=== PATIENT | female | born 1945 | race Caucasian/White ===

== ENCOUNTER 2017-03-14 19:55 | Emergency (ER) | payer OTHER ==
[~2017-03-14] VITALS: Ht 152.4 cm; Wt 112.7 kg
[~2017-03-14 19:55] MED LIST: ALLO100T PO; FISH1000 PO; LEVA500T33 PO; LEVO100T4 PO; LISI-366 PO; MEVA40TA6 PO; PROT40TA PO; SERT-132 PO; SYMB160A INH; TRAZ50TA4 PO; VITA-13 PO; VITA10002 PO; Z.0.OXYGENDME NC
[2017-03-14 20:02] VITALS: BP 156/92; PULSE 83; RESP 22; TEMP 98.2; O2SAT 95
[2017-03-14] MEDS ORDERED: SODIUM CHLORIDE 0.9% FLUSH 10 ML FLUSH IVF PRN (20:15)
--- NOTE | 2017-03-14 20:20 | PD ---
HPI Chief Complaint: Bleeding Time Seen by Provider: 20:02 Travel History International Travel<30 days: No Contact w/Intl Traveler<30days: No Traveled to known affect area: No History of Present Illness HPI 72-year-old female arrives today to bleeding for 1 day. She noticed blood, either genitourinary or GI in source, while showering. She applied a pad and has since then had persistent bleeding predominantly on one side, unknown to the patient or daughter. Each episode urination leads to bleeding. The daughter observed clots of blood at various times today. The patient takes Eloquis for arrhythmia and evidently a chest aneurysm as well. Patient's had no chest pain or palpitation near syncope dizziness headache or other symptoms consistent with acute anemia however she is fairly dyspneic here. The patient states it's worse than normal for her. The daughter states is about baseline. The patient reports having been treated for COPD throughout course of her life with numerous smokers at home however she never smoked. Evidently Dr. guzman of pulmonology told the patient she does not have COPD. She is on oxygen 24/04. She denies the use of diuretics or a history of CHF. She has never undergone hysterectomy. She does not recall having undergone a colonoscopy. PFSH Past Medical History Hx Anticoagulant Therapy: Yes (ELIQUIS) Arthritis: Yes Asthma: No Blood Disorders: No Anxiety: No Depression: No Heart Rhythm Problems: No Cancer: No High Cholesterol: Yes Chemotherapy: No Chest Pain: No Congestive Heart Failure: Yes COPD: Yes Diabetes: No Diminished Hearing: No Endocrine: Yes Gastrointestinal Disorders: No Glaucoma: No Gout: Yes Genitourinary: Yes (Hx of kidney stones ) Hepatitis: No Hiatal Hernia: No Hypertension: Yes Immune Disorder: No Implanted Vascular Access Dvce: Yes Musculoskeletal: No Neurologic: No Psychiatric: No Reproductive: No Respiratory: Yes (COPD) Myocardial Infarction: No Radiation Therapy: No Sickle Cell Disease: No Sleep Apnea: Yes Thyroid Disease: Yes (HYpothyroidism, on Synthroid QD) PNEUMOCCOCAL Vaccine (Year): 2 ?: Not Menopausal: Yes Past Surgical History Abdominal Surgery: Yes (UMBILICAL HERNIA REP.) AICD: No Arteriovenous Shunt: No Body Medical Devices: R shoulder titanium rods/joint Cardiac Surgery: No Cholecystectomy: Yes Ear Surgery: No Endocrine Surgery: Yes (THYMECTOMY) Eye Surgery: No Genitourinary Surgery: No Gynecologic Surgery: No Insulin Pump: No Joint Replacement: No Oral Surgery: No Pacemaker: No Thoracic Surgery: No Other Surgery: Yes Social History Alcohol Use: No Tobacco Use: No Substance Use: No Allergies-Medications (Allergen,Severity, Reaction): Coded Allergies: Sulfa (Verified Allergy, Severe, 03/14/17) Minocycline (Verified Allergy, Unknown, 03/14/17) Pravastatin (Verified Allergy, Unknown, 03/14/17) UNKNOWN REACTION - PER PT Reported Meds & Prescriptions Reported Meds & Active Scripts Active Reported Eliquis (Apixaban) 5 Mg Tab 5 Mg PO BID Fish Oil ([place]-3 Fatty Acids) 1,000 Mg Cap Trazodone (Trazodone HCl) 50 Mg Tab 50 Mg PO HS Sertraline (Sertraline HCl) 50 Mg Tab 50 Mg PO DAILY Pantoprazole (Pantoprazole Sodium) 40 Mg Tab 40 Mg PO DAILY Allopurinol 100 Mg Tab 100 Mg PO DAILY Lisinopril 40 Mg Tab 40 Mg PO DAILY Levothyroxine (Levothyroxine Sodium) 100 Mcg Tab 100 Mcg PO DAILY Lovastatin 40 Mg Tab 80 Mg PO DAILY Review of Systems Except as stated in HPI: all other systems reviewed are Neg General / Constitutional: No: Fever Physical Exam Narrative GENERAL: 72 F, BMI 48.5, conversational dyspnea, nasal cannula oxygen therapy at 2-3 L SKIN: Warm and dry. HEAD: Atraumatic. Normocephalic. EYES: Pupils equal and round. No scleral icterus. No injection or drainage. ENT: No nasal bleeding or discharge. Mucous membranes pink and moist. NECK: Trachea midline. No JVD. CARDIOVASCULAR: Regular rate and rhythm. RESPIRATORY: Lungs are clear. Tachypnea. GASTROINTESTINAL: Abdomen soft, non-tender, nondistended. Hepatic and splenic margins not palpable. MUSCULOSKELETAL: Extremities without clubbing, cyanosis, or edema. No obvious deformities. NEUROLOGICAL: Awake and alert. No obvious cranial nerve deficits. Motor grossly within normal limits. Five out of 5 muscle strength in the arms and legs. Normal speech. PSYCHIATRIC: Appropriate mood and affect; insight and judgment normal. Data Data Last Documented VS Vital Signs Date Time Temp Pulse Resp B/P Pulse Ox O2 Delivery O2 Flow Rate FiO2 03/14/17 20:36 96 Nasal Cannula 2 03/14/17 20:02 98.2 83 22 156/92 Vital signs reviewed Orders Basic Metabolic Panel (Bmp) (03/14/17 20:15) Complete Blood Count With Diff (03/14/17 20:15) Prothrombin Time / Inr (Pt) (03/14/17 20:15) Act Partial Throm Time (Ptt) (03/14/17 20:15) Urinalysis - C+S If Indicated (03/14/17 20:15) Type And Screen (03/14/17 20:15) Ecg Monitoring (03/14/17 20:15) Iv Access Insert/Monitor (03/14/17 20:15) Oximetry (03/14/17 20:15) Oxygen Administration (03/14/17 20:15) Sodium Chloride 0.9% Flush (Ns Flush) (03/14/17 20:15) Labs Laboratory Tests Test 03/14/17 20:30 White Blood Count 7.7 TH/MM3 Red Blood Count 3.94 MIL/MM3 Hemoglobin 11.2 GM/DL Hematocrit 34.7 % Mean Corpuscular Volume 88.0 FL Mean Corpuscular Hemoglobin 28.4 PG Mean Corpuscular Hemoglobin 32.3 % Concent Red Cell Distribution Width 14.9 % Platelet Count 178 TH/MM3 Mean Platelet Volume 8.5 FL Neutrophils (%) (Auto) 75.2 % Lymphocytes (%) (Auto) 17.8 % Monocytes (%) (Auto) 5.8 % Eosinophils (%) (Auto) 1.0 % Basophils (%) (Auto) 0.2 % Neutrophils # (Auto) 5.8 TH/MM3 Lymphocytes # (Auto) 1.4 TH/MM3 Monocytes # (Auto) 0.4 TH/MM3 Eosinophils # (Auto) 0.1 TH/MM3 Basophils # (Auto) 0.0 TH/MM3 CBC Comment DIFF FINAL Differential Comment Prothrombin Time 10.6 SEC Prothromb Time International 1.0 RATIO Ratio Activated Partial 27.3 SEC Thromboplast Time Sodium Level 141 MEQ/L Potassium Level 4.0 MEQ/L Chloride Level 101 MEQ/L Carbon Dioxide Level 33.0 MEQ/L Anion Gap 7 MEQ/L Blood Urea Nitrogen 15 MG/DL Creatinine 0.68 MG/DL Estimat Glomerular Filtration 85 ML/MIN Rate Random Glucose 118 MG/DL Calcium Level 9.5 MG/DL MDM Medical Decision Making Medical Screen Exam Complete: Yes Emergency Medical Condition: Yes Medical Record Reviewed: Yes Differential Diagnosis GI bleed, bleed, COPD, anemia Narrative Course A pelvic exam was started and the pt was found to have an approximate 2cm very thin (<1mm wide) and shallow right groin laceration/abrasion overlying a vascular bundle with active oozing located at about the superior and lateral most margins of the of the labia major such that actual involvement of the labial tissue was undetermined at the time of evaluation and treatment with consideration given to age and habitus. Pressure was applied for about 5 minutes and Dermabond was applied with good bleed control. Blood work is normal for patient. She will continue Eliquis however will follow-up with Dr. Ryan to discuss it. CBC & BMP Diagram 03/14/17 20:30 Procedures Procedure Narrative LACERATION LOCATION: R groin LENGTH: 2 cm NUMBER OF STITCHES/MIKHAIL: Dermabond REPAIR: The wound was closed using Dermabond. This was a single layer repair. advised to keep the dressing clean and dry. Patient tolerated the procedure well. Diagnosis Primary Impression: Bleeding Additional Impression: Laceration of groin with complication Qualified Code: S31.119A - Laceration of groin with complication, initial encounter Referrals: Lionel Ryan MD call for appointment Additional Instructions: You have a choice when it comes to health care, and we are glad that you chose [email or web address]. Hopefully, we have met your expectations on today's visit. You are welcome to return to [email or web address] at any time, as we are committed to meeting the health care needs of our community. Med/Other Pt SpecificInfo: No Change to Meds Disposition: 01 DISCHARGE HOME Condition: Dangelo Law MD Mar 14, 2017 20:20
[2017-03-14] MEDS ORDERED: FISH1000 (20:23)
[2017-03-14] MEDS ORDERED: TRAZ50TA12 PO (20:23)
[2017-03-14] MEDS ORDERED: LOVA40TA PO (20:23)
[2017-03-14] MEDS ORDERED: SERT-132 PO (20:23)
[2017-03-14] MEDS ORDERED: APIX5TAB PO (20:23)
[2017-03-14] MEDS ORDERED: LISI40TA PO (20:23)
[2017-03-14] MEDS ORDERED: ALLO100T PO (20:23)
[2017-03-14] MEDS ORDERED: PANT40TA3 PO (20:23)
[2017-03-14] MEDS ORDERED: LEVO100T5 PO (20:23)
[2017-03-14 20:44] LABS: AUTOMATED NEUTROPHIL # 5.8 TH/MM3 (1.8-7.7); BASOPHIL % 0.2 % (0.0-2.0); EOSINOPHIL # 0.1 TH/MM3 (0-0.4); HEMATOCRIT 34.7 % (35.0-46.0); HEMO FLAGS DIFF FINAL; LYMPH % 17.8 % (9.0-44.0); LYMPHOCYTE # 1.4 TH/MM3 (1.0-4.8); MEAN CORPUSCULAR HEMOGLOBIN 28.4 PG (27.0-34.0); MEAN CORPUSCULAR HGB CONC 32.3 % (32.0-36.0); MONO % 5.8 % (0.0-8.0); NEUT % 75.2 % (16.0-70.0); PLATELET COUNT 178 TH/MM3 (150-450); RED BLOOD COUNT 3.94 MIL/MM3 (4.00-5.30); RED CELL DISTRIBUTION WIDTH 14.9 % (11.6-17.2); WHITE BLOOD COUNT 7.7 TH/MM3 (4.0-11.0)
[2017-03-14 21:15] LABS: APTT (PATIENT) 27.3 SEC (24.3-30.1); PROTHROMBIN TIME - PATIENT 10.6 SEC (9.8-11.6)
[2017-03-14 21:58] VITALS: BP 167/88
== END 2017-03-14 22:00 | disposition home or self-care (01) ==
LOC: PHED 19:55
DX: S31.113A Laceration without foreign body of abdominal wall, right lower quadrant without penetration into peritoneal cavity, initial encounter (principal); X58.XXXA Exposure to other specified factors, initial encounter; Z79.01 Long term (current) use of anticoagulants
CPT/HCPCS: 12001; 80048; 85025; 85610; 85730; 86850; 86900; 86901

== ENCOUNTER 2017-05-24 12:54 | Day surgery (SDC) | payer OTHER ==
[2017-05-24] VITALS (11 sets, daily range): BP systolic 119–162; BP diastolic 66–89; PULSE 76–90; RESP 18–22; TEMP 97.5–98; O2SAT 94–100
[~2017-05-24] VITALS: Ht 152.4 cm; Wt 112.5 kg
[~2017-05-24 12:54] MED LIST changes: +APIX5TAB PO; +FISH1000; -FISH1000 PO; -LEVA500T33 PO; -LEVO100T4 PO; +LEVO100T5 PO; -LISI-366 PO; +LISI40TA PO; +LOVA40TA PO; -MEVA40TA6 PO; +PANT40TA3 PO; -PROT40TA PO; -SYMB160A INH; +TRAZ50TA12 PO; -TRAZ50TA4 PO; -VITA-13 PO; -VITA10002 PO; -Z.0.OXYGENDME NC
[2017-05-24] MEDS ORDERED: MULTTAB67 PO (14:13)
[2017-05-24 14:23] LABS: AUTOMATED NEUTROPHIL # 4.8 TH/MM3 (1.8-7.7); BASOPHIL % 0.4 % (0.0-2.0); EOSINOPHIL # 0.1 TH/MM3 (0-0.4); EOSINOPHIL % 0.8 % (0.0-4.0); HEMATOCRIT 36.4 % (35.0-46.0); HEMO FLAGS DIFF FINAL; LYMPH % 25.6 % (9.0-44.0); LYMPHOCYTE # 1.8 TH/MM3 (1.0-4.8); MEAN CELL VOLUME 88.8 FL (80.0-100.0); MEAN CORPUSCULAR HGB CONC 32.7 % (32.0-36.0); MONO % 6.6 % (0.0-8.0); NEUT % 66.6 % (16.0-70.0); PLATELET COUNT 194 TH/MM3 (150-450); RED CELL DISTRIBUTION WIDTH 15.2 % (11.6-17.2); WHITE BLOOD COUNT 7.2 TH/MM3 (4.0-11.0)
[2017-05-24 14:33] LABS: APTT (PATIENT) 26.6 SEC (24.3-30.1); PROTHROMBIN TIME - PATIENT 10.5 SEC (9.8-11.6)
[2017-05-24 14:44] LABS: BICARBONATE 33.1 MEQ/L (21.0-32.0); POTASSIUM 3.9 MEQ/L (3.5-5.1)
[2017-05-24] MEDS ORDERED: ISOPROTERENOL HCL 1 MG/5 ML AMP ONE ×2 (16:59→17:02)
[2017-05-24] MEDS ORDERED: MIDAZOLAM HCL 2 MG/2 ML VIAL ONE (16:59)
--- NOTE | 2017-05-24 18:25 | CATHPROC ---
Electric Imp HIS Report Study Information Study Number Admission Scheduled Start Study Start [id number] May 24 2017 12:54PM 05/24/2017 May 24 2017 5:09PM [place] [facility] Electrophysiology Study Admit Source Facility Department Other [facility] - Business Office Technician Physician and Clinical Staff Initial Claudia Nguyen Master Police Detective Alessandra Alberto,RT(R) TECH2 Other Anesthesia, LINE CREWMAN Recorder Genia Damico,RN Scrub Cherrie Carroll,CHILDBIRTH AND INFANT CARE TEACHER Procedures Performed Procedure Ablation Procedure Cardioversion Equipment Time Tailer In Description Size Mfg Part Number Used/Scraped [id number] 17:45 [employer] PACK, CCL CUSTOM * Used *[id number] 17:45 [facility] PACER LECHUGA, LIMB * 2530 *[id number] Used [id number] 17:45 [employer] BLANKET,WARM AIR CCL * Used *[id number] 17:45 [employer] CATHETER, JSN, QUAD FR 5 Used *[id number] 17:45 [employer] CATHETER, JSN, QUAD FR 5 Used *[id number] 17:45 [employer] CATHETER, JSN, QUAD FR 5 Used *[id number] 17:45 [employer] CATHETER, JSN, QUAD FR 5 Used *[id number] 17:45 [employer] ELECTRODE KIT, SAUL X SURFACE * [id number] Used [id number] 17:46 [employer] SHEATH, EPS, FR5 FAST CATH FR 5 Used *[id number] 17:46 [employer] SHEATH, EPS, FR5 FAST CATH FR 5 Used *[id number] 17:46 [employer] SHEATH, EPS, FR5 FAST CATH FR 5 Used *[id number] 17:46 [employer] SHEATH, EPS, FR6 FAST CATH FR [id number] 17:46 [employer] SHEATH, EPS, FR8 FAST CATH FR 8 [id number] Used [place] PAD, ELECTROSURGICAL 17:45 * [id number] *[id number] Used SURGICAL GROUNDING (BLUE) Medication Medication Total Dose (Bolus/Oral) Medication Total Dosage/Unit 1% XYLOCAINE 40 mL Medications (Bolus/Oral) Medication Time Given Dosage/Unit Administered By Reason 1% XYLOCAINE 05/24/2017 5:44:09 PM 20 mL Claudia Washington 20 mL 1% XYLOCAINE given in lab by Claudia Washington in Left Groin via Subcutaneous. 1% XYLOCAINE 05/24/2017 5:47:56 PM 20 mL Claudia Washington 20 mL 1% XYLOCAINE given in lab by Claudia Washington in Right Groin via Subcutaneous. Medication (Drip) Medication Time Given Dosage/Unit Concentration/Unit Diluent (ml) Solution ISUPREL 05/24/2017 6:02:50 PM 4 mcg/min 1 mg 250 NaCl .9 4 mcg/min ISUPREL given in lab by Claudia Washington via Peripheral IV. Pump/Drip Flow = 60 ml/hr using Na Cl .9 with a concentration of 1 mg in 250 ml. Initial Case Assessment Cardiovascular HR Rhythm NIBP Chest Pain 78 PACED 162/84 0 Edema Present Skin color Skin None Normal Warm Dry Circulatory - Right Pulses Dorsalis Pedis 1 Scale (0,1,2,3,4,d) Circulatory - Left Pulses Dorsalis Pedis 1 Scale (0,1,2,3,4,d) Neurological State Oriented to time-place- Alert Moves all extremities person Respiration - General Respiration Rate SpO2 (%) O2 (lpm) (B/min) 18 94 2 Chronological Log Time Study Chronological Log 17:00:00 Patient arrived via Bed. 17:00:10 Patient Name, D.O.B, / Armband Verified By R.N. Verbal Stimulation=~VERBAL~ Physical Stimulation=~PHYSICAL~ Airway=~AIRWAY~ Respiration=~RESPIR ATION~ 17:01:00 TOTAL=~TOTAL~. (0=absent, 1=limited, 2=present) 17:12:10 MD paged 17:15:10 MD responded Anesthesia at bedside. Assumes care of patient. (Jamal Trinidad CRNA ) SEE RECORDS FOR ALL MEDS AND TALS DURING 17:21:21 PROCEDURE 17:21:52 Patient has been NPO for More than 6Hrs. 17:21:55 Skin Breakdown- NONE PER PATIENT 17:22:23 Disposable Defibrillator Pads Placed On Patient. 17:22:24 Keila Prominences Protected 17:22:25 IV Warmer Connected To Patient. 17:22:26 A # 20 IV was noted in the Forearm (left). Grade = 0 17:22:47 A # 20 IV was noted in the Hand (right). Grade = 0 17:23:03 History and physical on the chart or being dictated. Assessment: Initial Case, HR=78 BPM, Rhythm=PACED, YJKV=070/84 mmhg, Chest Pain=0, Edema=None, Color=Normal, Skin = Warm, Dry Right Pulses: Noam Ped=1 17:23:04 Left Pulses: Noam Ped=1 Neurological: State=Alert, Ox3, JAY Respiration: Resp=18 B/min, SpO2=94 %, O2=2 lpm 17:24:04 Table restraints applied according to hospital policy 17:24:05 Bilateral groins prepped with 2% chlorhexidine, and with a 3 min. waiting time. 17:25:12 Reference ECG taken Time Out. Correct patient, procedure, procedure equipment, site and side verified with physicia n present. Time 17:40:00 concurred by MD, individual staff and LINE CREWMAN. Time Out #2 - Consents verified, patient in correct position, all results are labled and displa yed, safety precautions 17:40:10 taken, antibiotics administered. Time out concurred by MD, individual staff and LINE CREWMAN in procedu re 17:41:01 Case Start 17:44:09 20 mL 1% XYLOCAINE given in lab by Claudia Washington in Left Groin via Subcutaneous. 17:44:28 Vascular access was obtained in the Fem Vein (left). 17:44:31 Vascular access was obtained in the Fem Vein (left). 17:44:32 Vascular access was obtained in the Fem Vein (left). 17:45:00 A SHEATH, EPS, FR5 FAST CATH FR 5 was advanced into the Fem Vein (left) using the Modified Seldinger technique. 17:45:56 A SHEATH, EPS, FR5 FAST CATH FR 5 was advanced into the Fem Vein (left) using the Modified Seldinger technique. 17:46:50 A SHEATH, EPS, FR5 FAST CATH FR 5 was advanced into the Fem Vein (left) using the Modified Seldinger technique. 17:47:56 20 mL 1% XYLOCAINE given in lab by Claudia Washington in Right Groin via Subcutaneous. 17:48:00 Vascular access was obtained in the Fem Vein (right). 17:48:10 Vascular access was obtained in the Fem Vein (right). 17:49:00 A SHEATH, EPS, FR6 FAST CATH FR 6 was advanced into the Fem Vein (right) using the Modified Seldinger technique. 17:49:55 A SHEATH, EPS, FR8 FAST CATH FR 8 was advanced into the Fem Vein (right) using the Modified Seldinger technique. A CATHETER, JSN, QUAD FR 5 was advanced vis Fem Vein (left) and placed in the CS. Placement was visually 17:50:00 confirmed under fluoroscopy. A CATHETER, JSN, QUAD FR 5 was advanced vis Fem Vein (left) and placed in the HIS. Placement w as visually 17:51:00 confirmed under fluoroscopy. A CATHETER, JSN, QUAD FR 5 was advanced vis Fem Vein (left) and placed in the RVA. Placement w as visually 18:00:10 confirmed under fluoroscopy. A CATHETER, JSN, QUAD FR 5 was advanced vis Fem Vein (left) and placed in the HRA. Placement w as visually 18:01:15 confirmed under fluoroscopy. 18:01:21 EP STUDY IN PROGRESS 4 mcg/min ISUPREL given in lab by Claudia Washington via Peripheral IV. Pump/Drip Flow = 60 ml/hr u sing NaCl .9 with a 18:02:50 concentration of 1 mg in 250 ml. 18:17:14 ECG rhythm of AF noted. Patient cardioverted at 200 joules. Incomplete Success SYNC 18:18:48 ECG rhythm of AF noted. Patient cardioverted at 360 joules. Incomplete Success SYNC 18:19:10 Case End 18:21:26 Ablation procedure performed: AFIB. 18:21:37 EP Procedure was performed. EP STUDY ONLY 18:21:55 Catheter(s) removed without difficulty 18:24:03 Sheath removed; pressure applied to access site. 18:24:16 Sterile dressing applied to site 18:24:17 No case complications noted. 18:24:18 Cine recording checked. 18:24:19 Bedside Report will be given. 18:24:23 PACU called. Spoke to CAR USHER 18:24:32 Defibrillator and ground pads removed. Skin intact. 18:34:39 Patient moved to [facility] End Study - Contrast Media Used In Study Contrast Total Opened (mL) Total Used (mL) Total Wasted (mL) Unspecified 0 0 0 End Study - Radiation Exposure Fluoro Time (minutes) 2.9 End Study - Patient Disposition Complications Transferred To Interventional Outcome No Telemetry Bed successful
[2017-05-24] MEDS ORDERED: ONDANSETRON HCL 4 MG/2 ML VIAL IV PRN (18:45)
[2017-05-24] MEDS ORDERED: SODIUM CHLOR 0.9% 250 ML INJ 250 ML IV PRN (18:45)
[2017-05-24] MEDS ORDERED: BACITRACIN OINT 0.9 GM PKT TOP ONE (18:45)
[2017-05-24] MEDS ORDERED: LORazepam 2 MG/ML VIAL IV PRN (18:45)
[2017-05-24] MEDS ORDERED: METOCLOPRAMIDE HCL 10 MG/2 ML VIAL IV PRN (18:45)
[2017-05-24] MEDS ORDERED: ATROPINE SULFATE 1 MG/ML VIAL IV PRN (18:45)
[2017-05-24] MEDS ORDERED: LIDOCAINE HCL 1% 50 ML VIAL INFIL PRN (18:45)
[2017-05-24] MEDS ORDERED: DO NOT ADM ANY ANTICOAGULANT DRUGS PRN (19:05)
[2017-05-24] MEDS ORDERED: traZODone HCL 50 MG TAB PO SCH (21:00)
[2017-05-24] MEDS: APIXABAN 5 MG TABLET PO SCH (22:12)
[2017-05-25] VITALS (13 sets, daily range): BP systolic 102–130; BP diastolic 49–77; PULSE 59–114; RESP 16–20; TEMP 98–98.4; O2SAT 97–99
[2017-05-25] MEDS ORDERED: LEVOTHYROXINE SODIUM 100 MCG TAB PO SCH (06:00)
--- NOTE | 2017-05-25 08:19 | PD.CARD.PN ---
Subjective Subjective Remarks Feels okay Objective Medications Current Medications Medications (Trade) Dose Ordered Sig/Valente Route Start Time Stop Time Status Last Admin (Ativan Inj) 0.5 mg UNSCH PRN IV 05/24/17 18:45 05/25/17 18:44 (Atropine Inj) 0.5 mg UNSCH PRN IV 05/24/17 18:45 Sodium Chloride 250 ml @ 500 mls/hr ONCE PRN IV 05/24/17 18:45 05/25/17 18:44 (Reglan Inj) 10 mg Q4H PRN IV 05/24/17 18:45 (Zofran Inj) 4 mg Q4H PRN IV 05/24/17 18:45 (Xylocaine 1% Inj (50 ml)) 10 ml UNSCH PRN INFIL 05/24/17 18:45 05/25/17 18:44 (Zyloprim) 100 mg DAILY PO 05/25/17 09:00 (Eliquis) 5 mg BID PO 05/24/17 21:00 05/24/17 22:12 (Synthroid) 100 mcg DAILY@0600 PO 05/25/17 06:00 05/25/17 06:03 (Pravachol) 80 mg DAILY PO 05/25/17 09:00 (Protonix) 40 mg DAILY PO 05/25/17 09:00 (Zoloft) 50 mg DAILY PO 05/25/17 09:00 (Desyrel) 50 mg HS PO 05/24/17 21:00 05/24/17 22:11 Miscellaneous Information ALL NURSING DEPARTME... UNSCH PRN .XX 05/24/17 19:05 05/25/17 19:04 (Prinivil) 40 mg DAILY PO 05/25/17 09:00 (Theragran) 1 tab DAILY PO 05/25/17 09:00 Vital Signs / I&O Vital Signs Date Time Temp Pulse Resp B/P (MAP) Pulse Ox O2 Delivery O2 Flow Rate FiO2 05/25/17 07:22 Blow By 2.00 05/25/17 07:22 98.0 67 16 130/77 (94) 97 05/25/17 06:38 60 05/25/17 05:17 66 05/25/17 04:13 94 05/25/17 03:00 98.4 88 20 117/64 (81) 99 05/25/17 03:00 68 05/25/17 02:19 84 05/25/17 02:00 76 102/49 (66) 05/25/17 01:00 84 05/25/17 01:00 74 130/64 (86) 05/25/17 00:00 114 05/25/17 00:00 84 127/57 (80) 98 05/24/17 23:10 97.5 79 20 119/68 (85) 97 05/24/17 23:00 85 123/66 (85) 98 05/24/17 23:00 76 05/24/17 22:30 82 119/68 (85) 99 05/24/17 22:00 83 05/24/17 22:00 84 144/81 (102) 97 05/24/17 21:30 87 136/81 (99) 94 05/24/17 21:00 86 147/83 (104) 98 05/24/17 21:00 86 05/24/17 20:45 83 151/83 (105) 95 05/24/17 20:30 83 154/80 (104) 96 05/24/17 20:20 97.6 90 22 131/89 (103) 100 05/24/17 20:20 100 Nasal Cannula 2.00 05/24/17 20:15 85 131/89 (103) 96 05/24/17 20:15 85 05/24/17 19:45 81 18 157/82 (107) 97 Nasal Cannula 2 05/24/17 19:30 85 18 160/86 (110) 96 Nasal Cannula 2 05/24/17 19:15 86 18 151/80 (103) 96 Nasal Cannula 2 05/24/17 19:00 86 18 152/76 (101) 97 Nasal Cannula 2 05/24/17 18:51 97.5 93 20 155/84 (107) 97 Nasal Cannula 2 05/24/17 13:56 98.0 84 18 162/83 (109) 97 I/O 05/24/17 05/24/17 05/24/17 05/25/17 05/25/17 05/25/17 07:00 15:00 23:00 07:00 15:00 23:00 Intake Total 480 ml Balance 480 ml Intake Oral 480 ml # Voids 3 Physical Exam GENERAL: Well-nourished, well-developed patient. SKIN: Warm and dry. Groin site soft without bruising or bleeding. HEAD: Normocephalic. EYES: No scleral icterus. No injection or drainage. NECK: Supple, trachea midline. No JVD or lymphadenopathy. CARDIOVASCULAR: Regular rate and rhythm without murmurs, gallops, or rubs. RESPIRATORY: Breath sounds equal bilaterally. No accessory muscle use. GASTROINTESTINAL: Abdomen soft, non-tender, nondistended. EXTREMITIES: No cyanosis, or edema. NEUROLOGICAL: Awake, alert, and oriented x 3. Non-focal. Laboratory Laboratory Tests Test 05/24/17 13:40 White Blood Count 7.2 TH/MM3 Red Blood Count 4.10 MIL/MM3 Hemoglobin 11.9 GM/DL Hematocrit 36.4 % Mean Corpuscular Volume 88.8 FL Mean Corpuscular Hemoglobin 29.0 PG Mean Corpuscular Hemoglobin Concent 32.7 % Red Cell Distribution Width 15.2 % Platelet Count 194 TH/MM3 Mean Platelet Volume 8.6 FL Neutrophils (%) (Auto) 66.6 % Lymphocytes (%) (Auto) 25.6 % Monocytes (%) (Auto) 6.6 % Eosinophils (%) (Auto) 0.8 % Basophils (%) (Auto) 0.4 % Neutrophils # (Auto) 4.8 TH/MM3 Lymphocytes # (Auto) 1.8 TH/MM3 Monocytes # (Auto) 0.5 TH/MM3 Eosinophils # (Auto) 0.1 TH/MM3 Basophils # (Auto) 0.0 TH/MM3 CBC Comment DIFF FINAL Differential Comment Prothrombin Time 10.5 SEC Prothromb Time International Ratio 1.0 RATIO Activated Partial Thromboplast Time 26.6 SEC Blood Urea Nitrogen 14 MG/DL Creatinine 0.78 MG/DL Random Glucose 110 MG/DL Calcium Level 9.6 MG/DL Sodium Level 138 MEQ/L Potassium Level 3.9 MEQ/L Chloride Level 99 MEQ/L Carbon Dioxide Level 33.1 MEQ/L Anion Gap 6 MEQ/L Estimat Glomerular Filtration Rate 72 ML/MIN Assessment and Plan Problem List: (1) Atrial fibrillation ICD Codes: I48.91 - Unspecified atrial fibrillation Plan: Stable s/p EP study and cardioversion 2 for finding of new atrial fibrillation. Sinus rhythm today on telemetry. Groin sites stable. Discharge home, follow-up in [address] Washington per my discussion with him. Assessment and Plan Discussed with patient, RN, Dr. Washington. Problem Qualifiers (1) Atrial fibrillation: Qualified Codes: I48.0 - Paroxysmal atrial fibrillation Urmila Austin May 25, 2017 08:19
--- NOTE | 2017-05-25 08:28 | EKG ---
Date Performed: 05/24/2017 Time Performed: 19:07:27 PTAGE: 72 years EKG: ELECTRONIC VENTRICULAR PACEMAKER ABNORMAL RHYTHM ECG PREVIOUS TRACING : 05/26/2016 12.31 No significant change from previous tracing noted. DOCTOR: Lionel Ryan Interpretating Date/Time 05/25/2017 08:26:46
--- NOTE | 2017-05-25 08:36 | EKG ---
Date Performed: 05/24/2017 Time Performed: 14:05:20 PTAGE: 72 years EKG: Demand pacing Pacemaker rhythm - no further analysis Abnormal ECG PREVIOUS TRACING : 05/26/2016 12.31 Compared to previous tracing, ventricular pacing is now monserrat dent. DOCTOR: Lionel Ryan Interpretating Date/Time 05/25/2017 08:35:37
--- NOTE | 2017-05-25 08:41 | MA ---
cc: IDA MENEZES M.D. DATE: 05/24/2017 PROCEDURE PERFORMED Electrophysiology study, CS cannulation, 3-D mapping, repeat electrophysiology study on Isuprel infusion and cardioversion. INDICATION Mrs. Pablo is a 72-year-old female, morbid obesity, COPD, pulmonary fibrosis ____ pacemaker inserted, atrial flutter on anticoagulation, referred for electrophysiology study and ablation. The risks, the nature and the benefit of the procedure are clearly stated to her. Risks include pneumothorax, cardiac perforation, stroke and even . She understood and agreed to proceed. PROCEDURE After written informed consent was obtained, the patient was brought to the EP lab where she was prepped and draped in the usual sterile fashion. Conscious sedation was initiated and maintained throughout the procedure by anesthesiologist. Once sedation was verified, permanent pacemaker was reprogrammed to VVI 60. Then using modified Seldinger technique, the left femoral vein was cannulated on three occasions, three guidewires were advanced. Over the wire three 5-Japanese Hemaquet were advanced. Then the right femoral vein was cannulated on two occasions, two guidewires were advanced. Over the wire a 6 and 8-Japanese Hemaquet were advanced. Then under fluoroscopic guidance through the 5 and 6-Japanese Hemaquet, four 5-Japanese Tom curved quadripolar electrophysiology catheter advanced and placed around the His, upper right atrium, coronary sinus and right ventricular apex. Basic interval length measured. The patient was in sinus rhythm. Then atrial pacing protocol was performed at the proximal pole of the coronary sinus. Episode of short burst of atrial fibrillation was induced. Then Isuprel infusion was initiated. Atrial pacing protocol was repeated again. At that point atrial fibrillation was induced. I decided to proceed with cardioversion. The patient has severe COPD, shortness of breath, morbid obesity. This is not a good candidate for atrial fibrillation ablation. The patient will continue on medical management. No incident report. That was a very complex case. Blood loss was minimal. Permanent pacemaker was reprogrammed to DDD AR 60. 1. Electrocardiogram. At baseline the patient was in V pacing. Postprocedure electrocardiogram showed atrial fibrillation and V pacing. 2. Basic interval. Basic atrial cycle length was around 800 milliseconds. 3. Atrial pacing protocol. During atrial pacing protocol atrial fibrillation was induced. Ventricular pacing protocol there was no VA conduction. The patient on complete AV dissociation. CONCLUSION Electrophysiology study and CS cannulation, repeat electrophysiology study on Isuprel infusion, atrial fibrillation induction. COMMENT AND RECOMMENDATION At this point the patient is going to be transferred to the recovery room. She is not a good candidate for atrial fibrillation ablation, medical management for now. MD MARGARET Clifton/TLIsreal /6:29 PM /8:17 AM
[2017-05-25] MEDS ORDERED: LISINOPRIL 20 MG TAB PO SCH (09:00)
[2017-05-25] MEDS ORDERED: NON-FORMULARY DRUG (Lisinopril 40 MG) PO SCH (09:00)
[2017-05-25] MEDS ORDERED: PRAVASTATIN SOD 40 MG TAB PO SCH (09:00)
[2017-05-25] MEDS ORDERED: NON-FORMULARY DRUG (Multiple Vitamin 1 TAB) PO SCH (09:00)
[2017-05-25] MEDS ORDERED: ALLOPURINOL 100 MG TAB PO SCH (09:00)
[2017-05-25] MEDS ORDERED: SERTRALINE HCL 50 MG TAB PO SCH (09:00)
[2017-05-25] MEDS ORDERED: MULTIVITAMIN TAB PO SCH (09:00)
[2017-05-25] MEDS ORDERED: PANTOPRAZOLE SOD 40 MG DELAYED RELEASE TAB PO SCH (09:00)
[2017-05-25] MEDS: APIXABAN 5 MG TABLET PO SCH (09:27)
--- NOTE | 2017-05-25 11:16 | EKG ---
Date Performed: 05/25/2017 Time Performed: 06:09:12 PTAGE: 72 years EKG: Ventricular pacing Pacemaker rhythm - no further analysis Abnormal ECG PREVIOUS TRACING : 05/24/2017 19.07 No significant change from previous tracing noted. DOCTOR: Lionel Ryan Interpretating Date/Time 05/25/2017 11:12:58
== END 2017-05-25 12:18 | disposition home or self-care (01) ==
LOC: HDIC 12:54 → HDOC 12:54 → HCIN 19:50 → HDOC 05-25 12:18
PROVIDERS: ATTEND Internal Medicine Interventional Cardiology
DX: I48.91 Unspecified atrial fibrillation (principal); I48.92 Unspecified atrial flutter; J44.9 Chronic obstructive pulmonary disease, unspecified; J84.10 Pulmonary fibrosis, unspecified; I10 Essential (primary) hypertension; G47.30 Sleep apnea, unspecified; E78.5 Hyperlipidemia, unspecified; R73.03 Prediabetes; E03.9 Hypothyroidism, unspecified; G70.00 Myasthenia gravis without (acute) exacerbation; E66.01 Morbid (severe) obesity due to excess calories; Z68.42 Body mass index [BMI] 45.0-49.9, adult; Z95.0 Presence of cardiac pacemaker; Z79.01 Long term (current) use of anticoagulants; Z01.818 Encounter for other preprocedural examination
CPT/HCPCS: 80048; 85025; 85610; 85730; 86850; 86900; 86901; 92960; 93005; 93620; 93623; C1730; J2250; J3010